=== PATIENT | male | born 1955 | race Caucasian/White ===

== ENCOUNTER 2020-02-09 12:41 | Emergency (ER) | payer OTHER, SELFPAY ==
[~2020-02-09] VITALS: Ht 177.8 cm; Wt 108.9 kg
[2020-02-09 12:44] VITALS: Ht 177.8 cm; Wt 108.9 kg
[2020-02-09 13:37] LABS: CALCIUM 8.2 mg/dL (8.5-10.1); CARBON DIOXIDE 24.1 mmol/L (21-32); CREATININE SERUM 2.1 mg/dL (0.7-1.3); POTASSIUM SERUM 4.6 mmol/L (3.5-5.1)
[2020-02-09 13:54] LABS: BILIRUBIN TOTAL 3.3 mg/dL (0.20-1.00); C REACTIVE PROTEIN 3.7 mg/dL (<=0.9); PLATELET COUNT 87 x10^3mcL (130-400); RED CELL DISTRIBUTION WIDTH 16.3 % (11.5-14.5); TOTAL PROTEIN, SERUM 7.4 g/dL (6.4-8.2)
[2020-02-09 14:06] LABS: MONOCYTE 19 % (0-7); SEGMENTED NEUTROPHILS 61 % (37-75); rbc morphology (normal/abnorm) ABNORMAL (NORMAL)
[2020-02-09 14:07] LABS: PLATELET MORPHOLOGY PLATELETS DECREASED
[2020-02-09 14:15] LABS: ALBUMIN 2.2 g/dL (3.4-5.0)
[2020-02-09 16:05] VITALS: BP 118/72
== END 2020-02-09 17:18 | disposition home or self-care (01) ==
LOC: ED 12:41
PROVIDERS: Specialist
DX: U07.1 COVID-19 (principal); J12.89 Other viral pneumonia; K74.60 Unspecified cirrhosis of liver
CPT/HCPCS: 83880; 87804; J0456; J0696; J1885